=== PATIENT | male | born 1985 | race Caucasian/White ===

== ENCOUNTER 2023-07-10 19:40 | Emergency (ER) | payer OTHER ==
[~2023-07-10] VITALS: Ht 170.2 cm; Wt 69.4 kg
[2023-07-10 20:05] VITALS: TEMP 97.8
[2023-07-10 21:07] VITALS: BP 114/70; O2SAT 98
== END 2023-07-10 21:07 | disposition home or self-care (01) ==
LOC: ER 19:46
DX: S09.8XXA Other specified injuries of head, initial encounter (principal); F07.81 Postconcussional syndrome; Z60.2 Problems related to living alone; W22.8XXA Striking against or struck by other objects, initial encounter; Y93.89 Activity, other specified; Y92.89 Other specified places as the place of occurrence of the external cause; Y99.8 Other external cause status
CPT/HCPCS: 70450-TC